=== PATIENT | female | born 1985 | race Caucasian/White ===

== ENCOUNTER 2024-03-16 16:36 | Emergency (ER) | payer OTHER ==
[2024-03-16 17:01] VITALS: BP 133/77; PULSE 96; RESP 20; TEMP 99.1; BMI 26.6
[2024-03-16] MEDS ORDERED: FAMOTIDINE 20 MG TABLET ONE ×2 (17:07)
[2024-03-16] MEDS ORDERED: diphenhydrAMINE HCL 50 MG CAPSULE ONE (17:07)
[2024-03-16] MEDS: predniSONE 20 MG TABLET (UD) PO ONE (17:10)
[2024-03-16] MEDS: diphenhydrAMINE HCL 25 MG CAPSULE (FP) PO ONE (17:10)
[2024-03-16] MEDS: FAMOTIDINE 20 MG TABLET PO ONE (17:10)
== END 2024-03-16 17:36 | disposition home or self-care (01) ==
LOC: FER 16:36
DX: T78.40XA Allergy, unspecified, initial encounter (principal); L50.0 Allergic urticaria
CPT/HCPCS: 99283-25

== ENCOUNTER 2024-05-18 16:38 | Emergency (ER) | payer OTHER ==
[2024-05-18 16:54] VITALS: BMI 35.6
[2024-05-18] MEDS ORDERED: ACETAMINOPHEN 500 MG TABLET (FP) ONE (17:26)
[2024-05-18] MEDS ORDERED: ONDANSETRON *ODT* 4 MG TABLET ONE (17:26)
[2024-05-18] MEDS: ACETAMINOPHEN 500 MG TABLET (FP) PO ONE (17:29)
[2024-05-18] MEDS: ONDANSETRON *ODT* 4 MG TABLET SL ONE (17:30)
[2024-05-18 18:30] VITALS: BP 143/94; PULSE 112; RESP 16; TEMP 100.2
== END 2024-05-18 18:36 | disposition home or self-care (01) ==
LOC: FER 16:38
DX: U07.1 COVID-19 (principal); R05.9 Cough, unspecified; R09.81 Nasal congestion; M79.10 Myalgia, unspecified site; J02.9 Acute pharyngitis, unspecified; R00.2 Palpitations; R50.9 Fever, unspecified
CPT/HCPCS: 71045-TC-FY; 93005; 99284-25; Q0162